=== PATIENT | female | born 1975 | race Caucasian/White ===

== ENCOUNTER 2025-01-21 04:53 | Emergency (ER) | payer OTHER ==
[2025-01-21 05:00] VITALS: RESP 18; BMI 25.0
[2025-01-21] MEDS: SODIUM CHLORIDE 1,000 ML IV STA (05:58)
[2025-01-21] MEDS ORDERED: ACETAMINOPHEN INJECTION 100 ML ONE (05:59)
[2025-01-21] MEDS ORDERED: FAMOTIDINE 20 MG/50 ML IVPB 20 MG/50 ML MG IVPB ONE (06:00)
[2025-01-21] MEDS ORDERED: ONDANSETRON 4 MG/2 ML VIAL ONE (06:00)
[2025-01-21] MEDS: FAMOTIDINE 20 MG/50 ML IVPB 20 MG/50 ML MG IVPB ONE (06:01)
[2025-01-21] MEDS: ACETAMINOPHEN 1000 MG/100 ML BAG IVPB ONE (06:01)
[2025-01-21] MEDS: ONDANSETRON 4 MG/2 ML VIAL IVPUSH ONE (06:01)
[2025-01-21] MEDS: MINERAL OIL ENEMA 133 ML ENEMA RC ONE (06:09)
[2025-01-21 06:42] LABS: INR 1.15 (0.83-1.09); PROTHROMBIN TIME (PATIENT) 12.5 SEC (9.7-13.0)
[2025-01-21 06:45] LABS: ACTIVATED PTT 30.5 SECONDS (25.2-36.5)
[2025-01-21 07:01] LABS: ABSOLUTE IMMATURE GRANULOCYTES 0.02 x10^3/uL (0.0-0.031); BASOPHILS # 0.05 x10^3/uL (0.01-0.08); EOSINOPHIL % 1.6 % (0.7-5.8); EOSINOPHILS # 0.08 x10^3/uL (0.04-0.36); MCHC 31.0 g/dl (32.2-35.5); MEAN CELL VOLUME 73.9 fl (79.4-94.8); MEAN PLT VOLUME 10.7 fl (9.4-12.3); MONOCYTE # 0.39 x10^3/uL (0.24-0.86); MONOCYTE % 7.9 % (4.7-12.5); RDW 18.7 % (12.2-17.1)
[2025-01-21 07:49] LABS: ALK PHOS 67.0 U/L (40-150); CO2 23.0 mmol/L (21-32); CREATININE 0.71 mg/dL (0.55-1.3); GLUCOSE,RANDOM 78.0 mg/dL (74-106); SGOT/AST 17.0 U/L (5-34); SGPT/ALT 9.0 U/L (0-55); TOT PROT 7.4 g/dl (6.4-8.2)
[2025-01-21] MEDS ORDERED: D5-1/2NS+10 MEQ KCL - 10 MEQ/1,000 ML INFUS.BAG IV SCH (08:15)
[2025-01-21 08:18] LABS: EPI CELLS 8 /uL (0-25.1); HYALINE CASTS 1 /uL (0-3.1); URINE APPEARANCE CLEAR; URINE BACTERIA 2707 /uL (0-1359); URINE BILIRUBIN NEGATIVE (NEGATIVE); URINE COLOR YELLOW; URINE GLUCOSE (UA) NEGATIVE (NEGATIVE); URINE KETONE 2+ (NEGATIVE); URINE LEUK ESTERASE 1+ (NEGATIVE); URINE NITRITE NEGATIVE (NEGATIVE); URINE PROTEIN NEGATIVE (NEGATIVE); URINE RBC 95 /uL (0-23.9); URINE UROBILINOGEN 0.2 mg/dL (0.2-1.0); URINE WBC 116 /uL (0-25.8)
[2025-01-21] MEDS: DEXTROSE 5%-LACTATED RINGERS 1,000 ML IV SCH (08:49)
[2025-01-21 08:55] VITALS: BP 98/65; PULSE 67; TEMP 97.6
[2025-01-21] MEDS ORDERED: CEFTRIAXONE 1 GM/50 ML BAG ONE (09:29)
[2025-01-21] MEDS: CEFTRIAXONE 1 GM in DEXTROSE 5%-WATER - 100 ML IVPB ONE (09:50)
== END 2025-01-21 13:48 | disposition home or self-care (01) ==
LOC: JER 04:53
PROC: 3E033GC Introduction of Other Therapeutic Substance into Peripheral Vein, Percutaneous Approach (ICD-10-PCS; principal; 2025-01-21)
PROC: 3E03329 Introduction of Other Anti-infective into Peripheral Vein, Percutaneous Approach (ICD-10-PCS; 2025-01-21)
PROC: 3E033NZ Introduction of Analgesics, Hypnotics, Sedatives into Peripheral Vein, Percutaneous Approach (ICD-10-PCS; 2025-01-21)
PROC: 3E033GC Introduction of Other Therapeutic Substance into Peripheral Vein, Percutaneous Approach (ICD-10-PCS; 2025-01-21)
DX: N39.0 Urinary tract infection, site not specified (principal); R10.84 Generalized abdominal pain; R11.2 Nausea with vomiting, unspecified; K59.00 Constipation, unspecified; R30.0 Dysuria; R50.9 Fever, unspecified; R35.0 Frequency of micturition; R45.89 Other symptoms and signs involving emotional state
CPT/HCPCS: 36415; 74177-TC; 76705-TC; 80053; 81003; 83690; 84439; 84443; 84703; 85025; 85610; 85730; 86850; 86900; 86901; 87086; 99285-25; Q9967